=== PATIENT | female | born 1985 | race Caucasian/White ===

== ENCOUNTER 2021-02-27 11:06 | Emergency (ER) | payer MEDICAID ==
[~2021-02-27] VITALS: Ht 167.6 cm; Wt 90.9 kg
[2021-02-27 11:38] VITALS: BP 103/74
== END 2021-02-27 12:38 | disposition home or self-care (01) ==
LOC: ER 11:06
DX: J06.9 Acute upper respiratory infection, unspecified (principal); Z20.822 Contact with and (suspected) exposure to COVID-19; R05 Cough
CPT/HCPCS: 36415; 99281